=== PATIENT | female | born 1995 | race Caucasian/White ===

== ENCOUNTER 2019-01-05 11:22 | Emergency (ER) | payer OTHER ==
--- NOTE | 2019-01-05 12:32 | EDPHY ---
H & P Stated Complaint: abd pain Time Seen by Provider: 01/05/19 12:32 - Personal History LMP (Females 10-55): 15-21 Days Ago Current Tetanus/Diphtheria Vaccine: Yes - Medical/Surgical History Hx Asthma: No Hx Chronic Respiratory Disease: No Hx Diabetes: No Hx Cardiac Disease: Yes Hx Renal Disease: No Hx Cirrhosis: No Hx Alcoholism: No Other PMH: HTN, - Social History Smoking Status: Never smoked Constitutional: Initial Vital Signs Temperature (C) 36.7 C 01/05/19 11:24 Heart Rate 79 01/05/19 11:24 Respiratory Rate 18 01/05/19 11:24 Blood Pressure 171/109 H 01/05/19 11:24 O2 Sat (%) 97 01/05/19 11:24 O2 Delivery Mode Room Air Allergies/Adverse Reactions: No Known Allergies Allergy (Unverified 01/05/19 11:27) Home Medications: Medication Instructions Recorded Hydrochlorothiazide 01/05/19 Ondansetron Odt [Zofran Odt 4 mg 4 mg PO Q4 PRN #10 tab 01/05/19 (RX)] Reclipsen 28 Day Tablet 01/05/19 Medical Decision Making - Diagnostics Imaging Results: Imaging Impressions Abdomen Ultrasound 01/05/19 12:40 Impression: 1. Nonvisualization appendix. 2. Fluid-filled dilated small bowel loop right lower quadrant, with adjacent ascites. Results called to Dr. Hsieh at 1:40 PM. Imaging: Discussed imaging studies w/ manager of maintenance Radiologist, I viewed and interpreted images myself ED Course/Re-evaluation: CHIEF COMPLAINT: Abdominal pain nausea vomiting HISTORY OF PRESENT ILLNESS: Healthy 23-year-old female developed right-sided abdominal pain over the last 2-3 days. She has vomited once but she has been nauseated. She has had loose stools but no diarrhea. She denies fevers or chills. She has never had any surgery to her abdomen she is otherwise healthy. REVIEW OF SYSTEMS: A comprehensive 10 system review of systems is otherwise negative aside from elements mentioned in the history of present illness and medical decision making. PHYSICAL EXAM: HR, BP, O2 Sat, RR. Temp noted General Appearance: Alert, well hydrated, appropriate, and non-toxic appearing. Head: Atraumatic without scalp tenderness or obvious injury Eyes: Pupils equal, round, reactive to light and accommodation, EOMI, no trauma , no injection. Ears: Clear bilaterally, no perforation, normal landmarks Nose: Atraumatic, no rhinorrhea, clear. Throat: There is no erythema or exudates, no lesions, normal tonsils, mucus membranes moist. Neck: Supple, 2+ carotid upstroke, nontender, no lymphadenopathy. Respiratory: No retractions, no distress, no wheezes, and no accessory muscle use. Lungs are clear to auscultation bilaterally. Cardiovascular: Regular rate and rhythm, no murmurs, rubs, or gallops. Bilateral carotid, radial, dorsalis pedis, and posterior tibial pulses intact. Good capillary refill all extremities. Gastrointestinal: Pain in the right lower quadrant. Abdomen is soft, non- distended, no masses, no rebound, no guarding, no peritoneal signs. Musculoskeletal: Normal active ROM of all extremities, atraumatic. Neurological: Alert, appropriate, and interactive. The patient has normal DTRs and non-focal cranial nerves, motor, sensory, and cerebellar exam. Skin: No rashes, good turgor, no nodules on palpation. Past medical history: Hypertension Past surgical history: None Family history: Hypertension Social history: Single, student at the [employer] in [employer], does not abuse and does not abuse tobacco drugs or alcohol DIAGNOSTICS/PROCEDURES/CRITICAL CARE TIME: Abdominal US: The appendix was not visualized. She has dilated small bowel loop , free fluid. Abdominopelvic CT: Small loop of dilated bowel. No appendicitis. DIFFERENTIAL DIAGNOSIS: The differential diagnosis for the patient's abdominal pain included but was not limited to gastroenteritis, ovarian cyst, pelvic inflammatory disease, ovarian torsion, urinary tract infection, ectopic , cholecystitis, and appendicitis. MEDICAL DECISION MAKING: This patient is having a couple days worth of right lower quadrant abdominal pain. She does not have any peritoneal signs. She is not really anorexic and ate a meal last evening. She did vomit today. I am concerned about possibly appendicitis versus mesenteric adenitis and viral gastroenteritis. Ultrasound and labs are pending. I have talked to the patient regarding potential need for CT of ultrasound is nondiagnostic. 1343: I spoke with Dr. Chen, radiologist, regarding patient's abdominal US. The appendix was not visualized. She has dilated small bowel loop, free fluid. Abdominopelvic CT. 1421: I spoke with Dr. Chen, the patient has a small loop of dilated bowel. Patient does not have appendicitis. Her symptoms are more consistent with gastroenteritis. 1422: Reassessed patient and discussed imaging and laboratory findings. I have prescribed her Zofran for her symptoms. Return precautions provided; patient is comfortable with this plan. - Data Points Laboratory Results: Laboratory Results 01/05/19 12:05 01/05/19 12:05 01/05/19 01/05/19 01/05/19 12:05 12:05 12:05 WBC 5.95 10^3/uL 10^3/uL (3.80-9.50) RBC 4.56 10^6/uL 10^6/uL (4.18-5.33) Hgb 13.3 g/dL g/dL (12.6-16.3) Hct 40.0 % % (38.0-47.0) MCV 87.7 fL fL (81.5-99.8) MCH 29.2 pg pg (27.9-34.1) MCHC 33.3 g/dL g/dL (32.4-36.7) RDW 14.4 % % (11.5-15.2) Plt Count 249 10^3/uL 10^3/uL (150-400) MPV 10.7 fL fL (8.7-11.7) Neut % (Auto) 58.5 % % (39.3-74.2) Lymph % (Auto) 26.9 % % (15.0-45.0) [place] % (Auto) 11.8 % % (4.5-13.0) Eos % (Auto) 2.2 % % (0.6-7.6) Baso % (Auto) 0.3 % % (0.3-1.7) Nucleat RBC Rel Count 0.0 % % (0.0-0.2) Absolute Neuts (auto) 3.48 10^3/uL 10^3/uL (1.70-6.50) Absolute Lymphs (auto) 1.60 10^3/uL 10^3/uL (1.00-3.00) Absolute Monos (auto) 0.70 10^3/uL 10^3/uL (0.30-0.80) Absolute Eos (auto) 0.13 10^3/uL 10^3/uL (0.03-0.40) Absolute Basos (auto) 0.02 10^3/uL 10^3/uL (0.02-0.10) Absolute Nucleated RBC 0.00 10^3/uL 10^3/uL (0-0.01) Immature Gran % 0.3 % % (0.0-1.1) Immature Gran # 0.02 10^3/uL 10^3/uL (0.00-0.10) Sodium 135 mEq/L mEq/L (135-145) Potassium 3.5 mEq/L mEq/L (3.5-5.2) Chloride 102 mEq/L mEq/L (97-110) Carbon Dioxide 22 mEq/l mEq/l (22-31) Anion Gap 11 mEq/L mEq/L (6-14) BUN 10 mg/dL mg/dL (7-23) Creatinine 0.7 mg/dL mg/dL (0.6-1.0) Estimated GFR > 60 Glucose 81 mg/dL mg/dL (70-100) Calcium 9.5 mg/dL mg/dL (8.5-10.4) Total Bilirubin 0.3 mg/dL mg/dL (0.1-1.4) Conjugated Bilirubin 0.3 mg/dL mg/dL (0.0-0.5) Unconjugated Bilirubin 0.0 mg/dL mg/dL (0.0-1.1) AST 23 IU/L IU/L (14-46) ALT 25 IU/L IU/L (9-52) Alkaline Phosphatase 58 IU/L IU/L (38-126) Total Protein 7.1 g/dL g/dL (6.3-8.2) Albumin 4.1 g/dL g/dL (3.5-5.0) Lipase 55 IU/L IU/L (23-300) Beta HCG, Qual NEGATIVE Medications Given: Discontinued Medications Sodium Chloride (Ns) 1,000 mls @ 0 mls/hr IV EDNOW ONE; Wide Open PRN Reason: Protocol Stop: 01/05/19 12:41 Last Admin: 01/05/19 12:48 Dose: 1,000 mls Departure - Departure Disposition: Home, Routine, Self-Care Clinical Impression: Acute gastroenteritis Condition: Good Instructions: Gastroenteritis (ED) Additional Instructions: 1. Increase fluid intake. 2. Take 4mg oral Zofran as needed for nausea. 3. Follow-up with your primary doctor within 72 hours. 4. Return to the Emergency Department for fever, chest pain, shortness of breath , increasing pain, or other worsening of condition. Referrals: KATINA DUMONT [Other] - As per Instructions Prescriptions: Ondansetron Odt [Zofran Odt 4 mg (RX)] 4 mg PO Q4 PRN #10 tab PRN Reason: Nausea/Vomiting, Use 1st
[2019-01-05] MEDS ORDERED: NS 1,000 ML IV ONE (12:40)
[2019-01-05 12:45] LABS: PLATELET COUNT 249 10^3/uL (150-400)
[2019-01-05] MEDS ORDERED: IOPAMIDOL (ISOVUE-300) 100 ML BTL ONE (13:49)
[2019-01-05 14:26] VITALS: BP 150/104
== END 2019-01-05 14:28 | disposition home or self-care (01) ==
DX: K52.9 Noninfective gastroenteritis and colitis, unspecified (principal)
CPT/HCPCS: Q9967